=== PATIENT | male | born 1980 | race Caucasian/White ===

== ENCOUNTER 2023-07-13 22:28 | Emergency (ER) | payer BC ==
[~2023-07-13] VITALS: Ht 177.8 cm; Wt 70.8 kg
[2023-07-13] MEDS ORDERED: TDAP [DIPH/PERTUSSIS/TET] 0.5 ML VIAL IM ONE (23:00)
[2023-07-13] MEDS: TDAP [DIPH/PERTUSSIS/TET] 0.5 ML VIAL IM ONE (23:05)
[2023-07-13 23:12] VITALS: BP 127/79; TEMP 98.2; O2SAT 98
== END 2023-07-13 23:32 | disposition home or self-care (01) ==
LOC: ER 22:32
DX: S01.111A Laceration without foreign body of right eyelid and periocular area, initial encounter (principal); V00.131A Fall from skateboard, initial encounter; Y93.89 Activity, other specified; Y92.89 Other specified places as the place of occurrence of the external cause; Y99.8 Other external cause status
CPT/HCPCS: 90715